=== PATIENT | male | born 1945 | race Caucasian/White ===

== ENCOUNTER → 2017-07-01 | Outpatient (CLI) | payer MEDICARE, OTHER | LOC: COL.RAD 07:30 | DX: Z13.6 Encounter for screening for cardiovascular disorders (principal); I77.811 Abdominal aortic ectasia; I70.0 Atherosclerosis of aorta ==

== ENCOUNTER → 2018-04-26 | Outpatient (CLI) | payer MEDICARE, OTHER | LOC: COL.RAD 10:29 | DX: M19.132 Post-traumatic osteoarthritis, left wrist (principal) | CPT/HCPCS: J3301; Q9967 ==

== ENCOUNTER → 2022-02-03 | Outpatient (CLI) | payer MEDICARE, OTHER | LOC: COL.RAD 12:13 | DX: K57.90 Diverticulosis of intestine, part unspecified, without perforation or abscess without bleeding (principal) ==

== ENCOUNTER → 2022-05-27 | Outpatient (CLI) | payer MEDICARE, OTHER | LOC: COL.RAD 08:58 | DX: N28.1 Cyst of kidney, acquired (principal); D73.89 Other diseases of spleen ==

== ENCOUNTER 2024-06-14 15:19 | Emergency (ER) | payer MEDICARE, OTHER ==
[~2024-06-14] VITALS: Ht 190.5 cm; Wt 88.6 kg
[2024-06-14 15:24] VITALS: TEMP 98.3
[2024-06-14] MEDS ORDERED: SYNTHROID 0.10.15 MG PO (15:30)
[2024-06-14] MEDS ORDERED: XANAX 0.5MG0.5 MG PO (15:31)
[2024-06-14] MEDS ORDERED: DESYREL 50MG50 MG PO (15:31)
[2024-06-14] MEDS ORDERED: ZOLOFT 100MG100 MG PO (15:32)
[2024-06-14] MEDS ORDERED: WELLBUTRIN SR150 M1 PO (15:33)
[2024-06-14] MEDS ORDERED: ZOCOR 20MG20 MG PO (15:33)
[2024-06-14] MEDS ORDERED: HYZAAR 25 MG-101 TAB PO (15:34)
[2024-06-14] MEDS ORDERED: NORVASC 5MG5 MG/TAB PO (15:35)
[2024-06-14] MEDS ORDERED: XANAX 1MG1 MG PO (15:35)
[2024-06-14] MEDS ORDERED: NS 1,000 ML IV ONE (15:45)
[2024-06-14 15:48] LABS: BASO % 0.7 % (0.0-2.0); EOS # 0.1 K/mm3 (0.0-0.7); EOS % 2.3 % (0.0-4.0); GRAN # 3.5 K/mm3 (1.4-6.5); GRAN % 57.6 % (42.2-75.2); HEMATOCRIT 38.2 % (42.0-52.0); HEMOGLOBIN 12.8 g/dl (13.5-18.0); LYMPH % 32.3 % (20.0-51.0); MEAN CELL VOLUME 90 fl (80.0-100.0); MEAN CORPUSCULAR HEMOGLOBIN 30 pg (27-31); MEAN CORPUSCULAR HGB CONC 34 g/dl (33.0-37.0); MEAN PLATELET VOLUME 10.2 fl (7.4-10.4); MONO # 0.4 K/mm3 (0.1-0.6); MONO % 6.9 % (1.7-9.3); PLATELET COUNT 184 K/mm3 (130-400); RED BLOOD COUNT 4.27 M/mm3 (4.20-5.60); REDCELL DISTRIBUTION WIDTH-CV 12.5 % (11.5-14.5)
[2024-06-14] MEDS ORDERED: Ondansetron 4 MG/2 ML VIAL IV ONE (16:00)
[2024-06-14 16:03] LABS: ALANINE AMINOTRANSFERASE 12 U/L (0-55); ALBUMIN 3.7 g/dL (3.4-4.8); ALKALINE PHOSPHATASE 76 U/L (40-150); ANION GAP 9 mmol/L (7-16); AST,SGOT 14 U/L (5-34); BILIRUBIN,TOTAL 0.5 mg/dL (0.2-1.2); BLOOD UREA NITROGEN 28 mg/dL (8-26); CALCIUM 9.1 mg/dL (8.4-10.2); CHLORIDE 106 mEq/L (98-107); CREATINE KINASE 76 U/L (30-200); CREATININE, serum 1.54 mg/dL (0.72-1.25); GLUCOSE 100 mg/dL (70-99); POTASSIUM 3.3 mEq/L (3.5-4.5); SODIUM 141 mEq/L (136-145); TOTAL PROTEIN 6.5 g/dl (6.2-8.1)
[2024-06-14 16:14] LABS: TROPONIN-I < 0.010 ng/mL (0.00-0.033)
[2024-06-14 16:51] LABS: COLLECTION METHOD CLEAN CATCH
[2024-06-14 16:55] LABS: PH 7.5 (5.0-8.5); URINE APPEARANCE CLEAR (CLEAR/HAZY); URINE BLOOD NEGATIVE (NEGATIVE); URINE COLOR YELLOW (YELLOW); URINE GLUCOSE NEGATIVE (NEGATIVE); URINE KETONE NEGATIVE (NEGATIVE); URINE NITRATE NEGATIVE (NEGATIVE); URINE PROTEIN(semi-quant) NEGATIVE (NEGATIVE); URINE UROBILINOGEN 0.2 E.U/dL (0.2-1.0)
[2024-06-14 17:22] LABS: TRICYCLIC ANTIDEPRESS URINE NEGATIVE (NEGATIVE)
[2024-06-14 18:13] VITALS: BP 150/85; PULSE 48
== END 2024-06-14 18:13 | disposition home or self-care (01) ==
LOC: COL.ER 15:19
PROVIDERS: Physician Assistant
DX: R55 Syncope and collapse (principal); E86.0 Dehydration
CPT/HCPCS: J2405; J7030